=== PATIENT | female | born 1960 | race Caucasian/White ===

== ENCOUNTER 2022-03-05 10:49 | Emergency (ER) | payer MEDICARE ==
[2022-03-05 11:33] LABS: BASOPHIL 0.9 % (0-2); EOSINOPHIL 4.6 % (0-5); HCT 36.7 % (37.0-47.0); HGB 11.9 g/dl (12.5-16.0); LYMPHOCYTE 38.2 % (15-48); MCH 32.3 pg (25.0-31.0); MCHC 32.4 g/dL (32.0-36.0); MCV 99.7 fL (78.0-100.0); MONOCYTE 9.2 % (0-12); MPV 9.3 fL (6.0-9.5); NEUTROPHIL 46.7 % (41-80); NRBC 0; PLT 287 K/uL (150-400); RBC 3.68 M/uL (4.20-5.40); RDW 14.3 % (11.5-14.0); WBC 4.6 K/uL (4.0-10.5)
[2022-03-05 11:38] LABS: INR 0.96 (0.9-1.2); PROTHROMBIN TIME 12.5 SECONDS (11.9-13.9)
[2022-03-05 12:03] LABS: ALBUMIN 3.5 g/dL (3.4-5.0); BILIRUBIN - TOTAL 0.4 mg/dL (0.2-1.0); BUN/CREAT RATIO (CALC) 21.9 RATIO; CREATININE 0.96 mg/dL (0.51-0.95); GLOBULIN (CALCULATION) 3.9 g/dL; TOTAL PROTEIN 7.4 g/dL (6.4-8.2)
[2022-03-05] MEDS ORDERED: ONDANSETRON ODT4 MG PO (18:47)
[2022-03-05] MEDS ORDERED: LEVOTHYROXINE100 MC2 PO (18:47)
[2022-03-05] MEDS ORDERED: NORCO 5-325 TA1 EACH PO (18:47)
== END 2022-03-05 19:03 | disposition home or self-care (01) ==
LOC: FER 10:49
PROVIDERS: Emergency Medicine
DX: R07.89 Other chest pain (principal); E03.9 Hypothyroidism, unspecified; E16.2 Hypoglycemia, unspecified; K21.9 Gastro-esophageal reflux disease without esophagitis; Z88.2 Allergy status to sulfonamides; Z88.5 Allergy status to narcotic agent; Z91.018 Allergy to other foods; Z79.899 Other long term (current) drug therapy
CPT/HCPCS: 36415; 71045; 80053; 83690; 83880; 84145; 84439; 84443; 84484; 85025; 85610; 85730; 93005; J1170; J2405; J7030

== ENCOUNTER 2022-05-13 14:39 | Emergency (ER) | payer MEDICARE ==
[~2022-05-13 14:39] MED LIST: LEVOTHYROXINE100 MC2 PO; NORCO 5-325 TA1 EACH PO; ONDANSETRON ODT4 MG PO
[2022-05-13] MEDS ORDERED: NORCO 5-325 TA1 EACH PO (18:44)
[2022-05-13] MEDS ORDERED: MEDROL 4MG DOSEP4 MG PO (18:44)
[2022-05-13] MEDS ORDERED: CYCLOBENZAPRINE10 MG PO (18:45)
== END 2022-05-13 18:52 | disposition home or self-care (01) ==
LOC: FER 14:39
DX: S13.4XXA Sprain of ligaments of cervical spine, initial encounter (principal); R51.9 Headache, unspecified; W10.9XXA Fall (on) (from) unspecified stairs and steps, initial encounter
CPT/HCPCS: 70450; 72125; 96372; 99283; J1100; J1885